=== PATIENT | female | born 2000 | race African-American/Black ===

== ENCOUNTER 2023-05-12 12:44 | Emergency (ER) | payer OTHER | END 2023-05-12 15:45 | disposition home or self-care (01) | LOC: NAV ERS 12:44 | DX: O9A.213 Injury, poisoning and certain other consequences of external causes complicating pregnancy, third trimester (principal); S30.1XXA Contusion of abdominal wall, initial encounter; S70.01XA Contusion of right hip, initial encounter; W06.XXXA Fall from bed, initial encounter; Z3A.34 34 weeks gestation of pregnancy | CPT/HCPCS: 99283 ==